=== PATIENT | female | born 2000 | race Caucasian/White ===

== ENCOUNTER 2025-09-23 04:31 | Emergency (ER) | payer MEDICAID, OTHER ==
[~2025-09-23] VITALS: Ht 162.6 cm; Wt 47.0 kg
[~2025-09-23 04:31] MED LIST: BENADRYL
[2025-09-23 04:49] VITALS: TEMP 98; O2SAT 99
[2025-09-23] MEDS ORDERED: ERYT1OIN6 EACHEYE (05:36)
[2025-09-23] MEDS: TETRACAINE 0.5% OPHTH DROPS 4ML BOTHEYE ONE (05:40)
[2025-09-23] MEDS: FLUORESCEIN SODIUM 1MG/STRIP LEFTEYE ONE (05:41)
[2025-09-23 06:01] VITALS: BP 111/60; PULSE 78; RESP 18; O2SAT 100
== END 2025-09-23 06:25 | disposition home or self-care (01) ==
LOC: ER 04:31
DX: S05.02XA Injury of conjunctiva and corneal abrasion without foreign body, left eye, initial encounter (principal); H11.32 Conjunctival hemorrhage, left eye; X58.XXXA Exposure to other specified factors, initial encounter; Y93.89 Activity, other specified; Y92.89 Other specified places as the place of occurrence of the external cause; Y99.8 Other external cause status
CPT/HCPCS: 99283

== ENCOUNTER 2025-09-23 21:53 | Emergency (ER) | payer MEDICAID ==
[~2025-09-23] VITALS: Ht 160 cm; Wt 44.7 kg
[~2025-09-23 21:53] MED LIST changes: +ERYT1OIN6 EACHEYE
[2025-09-23 21:54] VITALS: O2SAT 98
[2025-09-23 21:59] VITALS: BP 102/68; PULSE 98; RESP 16; TEMP 36.8; O2SAT 100
== END 2025-09-23 23:31 | disposition home or self-care (01) ==
LOC: ER 21:53
DX: S05.01XA Injury of conjunctiva and corneal abrasion without foreign body, right eye, initial encounter (principal); H10.9 Unspecified conjunctivitis; X58.XXXA Exposure to other specified factors, initial encounter; Y93.89 Activity, other specified; Y92.89 Other specified places as the place of occurrence of the external cause; Y99.8 Other external cause status
CPT/HCPCS: 99282